=== PATIENT | female | born 1995 | race Caucasian/White ===

== ENCOUNTER 2016-11-24 08:54 | Emergency (ER) | payer SELFPAY ==
[~2016-11-24] VITALS: Ht 167.6 cm; Wt 58.0 kg
[~2016-11-24 08:54] MED LIST: Z.0.NO CURRENT MEDS
[2016-11-24 08:57] VITALS: BP 132/73; PULSE 110; RESP 15; TEMP 98.2; O2SAT 97
[2016-11-24] MEDS ORDERED: CLINDAMYCIN PHOS 600 MG/4 ML VIAL IM ONE (09:30)
--- NOTE | 2016-11-24 09:30 | PD ---
HPI Chief Complaint: Skin Problem Time Seen by Provider: 09:10 Travel History International Travel<30 days: No Contact w/Intl Traveler<30days: No Traveled to known affect area: No History of Present Illness HPI The patient was seen and examined in the presence of the nurse. This patient complains of an infection in her left arm. She is an IV Dilaudid abuser and injected herself in this area that became infected. She denies fever. No chest symptoms. No shortness of breath or chest pain or presyncopal symptoms. Duration 2 days. No alleviating factors. Severity is moderate PFSH Past Medical History Medical History: Denies Significant Hx Diminished Hearing: No Tetanus Vaccination: > 5 Years Influenza Vaccination: No ?: Not LMP: UNKNOWN : 1 Para: 2 Miscarriage: 0 : 0 Past Surgical History Surgical History: No Previous Surgery Social History Alcohol Use: Yes (OCC) Tobacco Use: Yes (11/11 PPD) Substance Use: Yes (IVDA, MARIJUANA) Allergies-Medications (Allergen,Severity, Reaction): Coded Allergies: No Known Allergies (Verified , 11/24/16) Reported Meds & Prescriptions Reported Meds & Active Scripts Active Review of Systems General / Constitutional: No: Fever HENT: No: Headaches Cardiovascular: No: Chest Pain or Discomfort Respiratory: No: Cough Physical Exam Narrative NECK: Symmetrical appearance, midline trachea. No mass or crepitus. Thyroid without enlargement, tenderness, or mass. GASTROINTESTINAL: Abdomen soft, non-tender, nondistended. Positive bowel sounds. No hepato-splenomegaly, or palpable masses. No guarding. Left arm: In the antecubital fossa is a small indurated area. There is no fluctuance or drainage. There is some superficial macular erythema around that spot. No ascending lymphangitis or axillary adenopathy. Left arm is neurovascularly intact. Compartments are soft and nontender. Good range of motion at the elbow. Data Data Last Documented VS Vital Signs Date Time Temp Pulse Resp B/P Pulse Ox O2 Delivery O2 Flow Rate FiO2 11/24/16 08:57 98.2 110 15 132/73 97 Orders Clindamycin Inj (Cleocin Inj) (11/24/16 09:30) MDM Medical Decision Making Medical Screen Exam Complete: Yes Emergency Medical Condition: Yes Medical Record Reviewed: Yes Differential Diagnosis Cellulitis, abscess, dermatitis Narrative Course I have reviewed the patient's electronic medical record. Patient has an infected area of the left arm. Nothing seems amenable to incision and drainage or culture. No fluctuance or drainage. She has no fever. She does not look septic nor toxic. I have no clinical suspicion of bacteremia or endocarditis. At this point the infection looks minor and I don't feel inpatient hospitalization is warranted. Obviously if outpatient treatment fails or if it progresses and this could change. I gave her injection of clindamycin followed by 10 day prescription for both clindamycin and doxycycline. Diagnosis Primary Impression: Left arm cellulitis Additional Impression: IV drug abuse Additional Instructions: The patient was advised to follow up with their physician and return if they worsen. Med/Other Pt SpecificInfo: Prescription(s) given Disposition: 01 DISCHARGE HOME Condition: Stable Haja Rodríguez MD Nov 24, 2016 09:30
[2016-11-24] MEDS ORDERED: CLIN1CAP5 PO (10:28)
[2016-11-24] MEDS ORDERED: DOXY100C PO (10:28)
[2016-11-24 10:37] VITALS: BP 128/72
== END 2016-11-24 11:00 | disposition home or self-care (01) ==
LOC: NEPC 08:54
DX: L03.114 Cellulitis of left upper limb (principal); F11.10 Opioid abuse, uncomplicated; F12.90 Cannabis use, unspecified, uncomplicated; F17.210 Nicotine dependence, cigarettes, uncomplicated
CPT/HCPCS: 96372

== ENCOUNTER 2018-04-17 14:51 | Emergency (ER) | payer SELFPAY ==
[~2018-04-17] VITALS: Ht 170.2 cm; Wt 53.0 kg
[~2018-04-17 14:51] MED LIST changes: +CLIN150C14 PO; +DOXY100C PO; -Z.0.NO CURRENT MEDS
[2018-04-17 15:01] VITALS: BP 149/89; PULSE 109; RESP 18; TEMP 98.5; O2SAT 98
[2018-04-17] MEDS ORDERED: CLINDAMYCIN PHOS 600 MG/4 ML VIAL IM ONE (16:00)
[2018-04-17] MEDS ORDERED: PRED20 PO (16:08)
[2018-04-17] MEDS ORDERED: TRIAM.1%T TOPICAL (16:08)
[2018-04-17] MEDS ORDERED: CLIN150C14 PO (16:09)
[2018-04-17] MEDS ORDERED: BACT800T5 PO (16:09)
--- NOTE | 2018-04-17 16:09 | PD ---
HPI Chief Complaint: Skin Problem Time Seen by Provider: 15:55 Travel History International Travel<30 days: No Contact w/Intl Traveler<30days: No Traveled to known affect area: No History of Present Illness HPI 23-year-old female complaining redness swelling painful rash on the right leg and itching rash on the left leg and right wrist. Patient was exposed to poison lia poison oak poison sumac several days ago. Patient states that she has increasing redness swelling and pain and right lower leg rash. Patient has some mild itching rash on the left lower leg and right wrist. Patient states that she is up-to-date with TD booster. Patient denies any chance of being . Patient denies any fever chills. PFSH Past Medical History Diminished Hearing: No ?: Unknown : 1 Para: 2 Miscarriage: 0 : 0 Social History Alcohol Use: Yes (OCC) Tobacco Use: Yes (11/11 PPD) Substance Use: Yes (IVDA, MARIJUANA) Allergies-Medications (Allergen,Severity, Reaction): Coded Allergies: No Known Allergies (Verified , 11/24/16) Reported Meds & Prescriptions Reported Meds & Active Scripts Active Doxycycline Hyclate 100 Mg Cap 100 Mg PO BID Clindamycin (Clindamycin HCl) 150 Mg Cap 300 Mg PO Q6H Review of Systems General / Constitutional: No: Fever Eyes: No: Visual changes HENT: No: Headaches Cardiovascular: No: Chest Pain or Discomfort Respiratory: No: Shortness of Breath Gastrointestinal: No: Abdominal Pain Genitourinary: No: Dysuria Musculoskeletal: No: Pain Skin: Positive Rash Neurologic: No: Weakness Psychiatric: No: Depression Endocrine: No: Polydipsia Hematologic/Lymphatic: No: Easy Bruising Physical Exam Narrative GENERAL: Well-nourished, well-developed patient. SKIN: Focused skin assessment warm/dry. HEAD: Normocephalic. EYES: No scleral icterus. No injection or drainage. NECK: Supple, trachea midline. No JVD or lymphadenopathy. CARDIOVASCULAR: Regular rate and rhythm without murmurs, gallops, or rubs. RESPIRATORY: Breath sounds equal bilaterally. No accessory muscle use. GASTROINTESTINAL: Abdomen soft, non-tender, nondistended. MUSCULOSKELETAL: No cyanosis, or edema. BACK: Nontender without obvious deformity. No CVA tenderness. On the right lower leg with redness swelling patient has a patchy rash and mild clear discharge noted. Mild tenderness on palpation. Patient has patchy rash on the left lower leg and on aspect of the right wrist. No redness no heat noted. No discharge noted. Data Data Last Documented VS Vital Signs Date Time Temp Pulse Resp B/P (MAP) Pulse Ox O2 Delivery O2 Flow Rate FiO2 04/17/18 15:01 98.5 109 18 149/89 (109) 98 Orders Orders Clindamycin Inj (Cleocin Inj) (04/17/18 16:00) MDM Medical Decision Making Medical Screen Exam Complete: Yes Emergency Medical Condition: Yes Differential Diagnosis Differential diagnosis including contact dermatitis, cellulitis, abscess. Narrative Course 23-year-old female with itching rash on right wrist, left leg and painful rash and red rash on right leg. Status post exposures to plants. Diagnosis Primary Impression: Cellulitis of right leg Additional Impression: Contact dermatitis Qualified Codes: L23.7 - Allergic contact dermatitis due to plants, except food Patient Instructions: General Instructions Additional Instructions: Take medications as directed. Follow-up with personal physician. Return if worse. Med/Other Pt SpecificInfo: Prescription(s) given Scripts Clindamycin (Clindamycin) 150 Mg Cap 300 MG PO QID for Infection, #80 CAP 0 Refills Prov: Parag Powers MD 04/17/18 Sulfamethoxazole-Trimethoprim (Bactrim DS) 800-160 Mg Tab 1 TAB PO BID for Infection, #20 TAB 0 Refills Prov: Parag Powers MD 04/17/18 Triamcinolone Topical (Triamcinolone Topical) 0.1 % Oint 1 APPLIC TOPICAL BID for Inflammation, #30 GM 0 Refills Prov: Parag Powers MD 04/17/18 Prednisone (Prednisone) 20 Mg Tab 20 MG PO BID, #20 TAB 0 Refills Prov: Parag Powers MD 04/17/18 Disposition: 01 DISCHARGE HOME Condition: Stable Parag Powers MD Apr 17, 2018 16:09
== END 2018-04-17 16:39 | disposition home or self-care (01) ==
LOC: NEPD 14:51
DX: L03.115 Cellulitis of right lower limb (principal); L23.7 Allergic contact dermatitis due to plants, except food; F17.200 Nicotine dependence, unspecified, uncomplicated
CPT/HCPCS: 96372